=== PATIENT | female | born 1995 | race Hispanic/Latino ===

== ENCOUNTER 2024-05-13 13:30 | Emergency (ER) | payer SELFPAY ==
[2024-05-13] MEDS ORDERED: FAMOTIDINE 20 MG/2 ML VIAL IV ONE (14:34)
[2024-05-13] MEDS ORDERED: ONDANSETRON 4 MG/2 ML VIAL ONE (14:34)
[2024-05-13] MEDS ORDERED: NA CHLORIDE 0.9% 1,000 ML ONE (14:34)
[2024-05-13] MEDS ORDERED: KETOROLAC 30 MG/ML INJ ONE (14:34)
[2024-05-13 14:55] LABS: Specific Gravity 1.011 (1.005-1.030)
[2024-05-13 14:57] LABS: Specific Gravity 1.011 (1.005-1.030); Sqamous Epithelial None Seen /HPF (None Seen); Urine Bacteria None Seen /HPF (<20); Urine Bilirubin NEGATIVE (Negative); Urine Blood Trace (Negative); Urine Clarity Turbid (Clear); Urine Color Light-Yellow (Yellow); Urine Culture Reflex Order REFLEXED; Urine Glucose NEGATIVE (Negative); Urine Ketones TRACE (Negative); Urine Microscopic Reflex YN ORDER UMIC; Urine Mucus Slight /HPF (None Seen); Urine Nitrite NEGATIVE (Negative); Urine Protein NEGATIVE (Negative); Urine Urobilinogen Normal (Normal)
[2024-05-13 14:58] LABS: Absolute Eosinophils 0.1 K/uL (0-0.5); Absolute Lymphocytes (CBC) 1.9 K/uL (0.7-4.9); Absolute Monocytes 0.5 K/uL (0.1-1.3); Absolute Neutrophil 6.4 K/uL (1.8-8.0); Basophils % 0.3 % (0-1.3); Eosinophils % 0.7 % (0-4.4); Hematocrit 45.5 % (36.0-45.0); Hemoglobin 15.7 g/dL (12.0-15.0); Lymphocytes % 21.4 % (15.3-44.8); MCH 30.5 pg (27.0-35.0); MCHC 34.6 g/dL (32.0-36.0); MCV 88.1 fL (80-100); Monocytes % 5.5 % (3.3-12.3); Neutrophils % 72.1 % (41.7-73.7); Platelets 332 thou/uL (152-406); RBC Red Blood Cell Count 5.16 M/uL (3.86-4.86); Red Cell Distribution Width 13.5 % (12.1-15.2)
--- NOTE | 2024-05-13 14:59 | RAD REPORT ---
EXAMINATION: Abdomen Exam Limited CLINICAL HISTORY: [facility] MAIN N ABD PAIN Bed: COMPARISON: None. TECHNIQUE: Limited upper abdominal grayscale and color flow sonographic images. FINDINGS: Gallbladder: Normally distended. No gallstones. No wall thickening or pericholecystic fluid. Reported ly negative sonographic Goldman's sign. Bile ducts: No intrahepatic or extrahepatic biliary dilatation. Common bile duct measures 3 mm. Liver: Visualized portions of the liver demonstrate normal echogenicity with no suspicious findings. Fluid: No ascites. IMPRESSION: No abnormalities on right upper quadrant ultrasound.
[2024-05-13 15:09] LABS: Albumin/Globulin Ratio 0.9 (1.1-1.8); Anion Gap 6.6 mEq/L (5.0-15.0); Bilirubin Total 0.6 mg/dL (0.2-1.0); Globulin 4.4 g/dL (2.3-3.5); Potassium 3.6 mEq/L (3.5-5.1); Protein, Total 8.4 g/dL (6.4-8.2)
--- NOTE | 2024-05-13 17:45 | RAD REPORT ---
EXAMINATION: CT Abdomen Pelvis W Contrast CLINICAL INDICATION: Female, 28 years old. ABD PAIN TECHNIQUE: CT abdomen and pelvis was performed, after the administration of IV contrast, as per [facility] protocol. Axial, sagittal and coronal reconstructions were obtained. One or more of the following dose reduction techniques were used: Automated exposure control, adjustment of the mA and k V according to patient size, and iterative reconstruction. Unless otherwise specified, incidental findings do not require dedicated imaging follow-up. COMPARISON: No prior exam. FINDINGS: LOWER CHEST: The visualized lung bases are clear. LIVER: Normal in size and contour. No focal lesion. BILIARY SYSTEM: No suspicious abnormalities. SPLEEN: Normal size. No focal lesion. PANCREAS: No mass, ductal dilation, or cathryn-pancreatic fluid. ADRENALS: Normal; no mass. KIDNEYS: Normal size and contour. No hydronephrosis. URINARY BLADDER: Decompressed, limiting evaluation. GASTROINTESTINAL TRACT: No evidence of free air, significant intra-abdominal free fluid, bowel obstru ction or abscess. APPENDIX: Normal appendix. LYMPH NODES: No lymphadenopathy. MUSCULOSKELETAL: No acute or suspicious osseous abnormality. ADDITIONAL FINDINGS: Uterus is retroverted. IMPRESSION: No acute or concerning abnormalities seen in the abdomen or pelvis.
--- NOTE | 2024-05-13 17:56 | ER ---
Nurse's Notes [facility] Name: Luana Leach Age: 28 yrs Sex: Female : 1995 Arrival Date: 05/13/2024 Time: 13:30 Bed 5 Private MD: Diagnosis: Upper abdominal pain, unspecified Presentation: 05/13 14:01 Chief complaint: Patient states: right flank to abdominal pain since Monday. Nausea no tm6 vomiting. Coronavirus screen: Client denies travel out of the [place] in the last 14 days. Ebola Screen: Patient negative for fever greater than or equal to 101.5 degrees Fahrenheit, and additional compatible Ebola Virus Disease symptoms Patient denies exposure to infectious person. Patient denies travel to an Ebola-affected area in the 21 days before illness onset. No symptoms or risks identified at this time. Risk Assessment: Do you want to hurt yourself or someone else? Patient reports no desire to harm self or others. Onset of symptoms was May 10, 2024. 14:01 Method Of Arrival: Ambulatory tm6 14:01 Acuity: ELENA 3 tm6 14:05 Initial Sepsis Screen: Does the patient meet any 2 criteria? HR > 90 bpm. Does the tm6 patient have a suspected source of infection? No. Patient's initial sepsis screen is negative. Triage Assessment: 14:01 General: Appears in no apparent distress. Behavior is calm, cooperative. Pain: tm6 Complains of pain in back and abdomen. EENT: No signs and/or symptoms were reported regarding the EENT system. Neuro: Level of Consciousness is awake, alert, obeys commands, Oriented to person, place, time, situation. Cardiovascular: Patient's skin is warm and dry. Respiratory: Airway is patent Respiratory effort is even, unlabored, Respiratory pattern is regular, symmetrical. GI: Reports lower abdominal pain, upper abdominal pain. : Reports pain in right flank(s). Derm: No signs and/or symptoms reported regarding the dermatologic system. Musculoskeletal: Circulation, motion, and sensation intact. 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 - Infectious Disease History:: Denies. - Social history:: Smoking status: Patient denies any tobacco usage or history of. Patient/guardian denies using alcohol. Screenin:47 [facility] ED Fall Risk Assessment (Adult) History of falling in the last 3 months, bp including since admission No falls in past 3 months (0 pts) Confusion or Disorientation No (0 pts) Intoxicated or Sedated No (0 pts) Impaired Gait No (0 pts) Mobility Assist Device Used No (0 pt) Altered Elimination No (0 pt) Score/Fall Risk Level 0 - 2 = Low Risk Oriented to surroundings. Abuse screen: Denies threats or abuse. Denies injuries from another. Nutritional screening: No deficits noted. Tuberculosis screening: No symptoms or risk factors identified. Assessment: 14:10 Neuro: Level of Consciousness is awake, alert, obeys commands, Oriented to Appropriate bp for age. Vital Signs: 14:01 Pulse 103; Resp 18; Temp 98.2; Pulse Ox 99% on R/A; Weight 88.45 kg; Height 5 ft. 6 in. tm6 ; Pain 5/10; 14:04 BP 161 / 105; MAP 122 mmHg; tm6 14:05 Pain 5/10; tm6 16:00 BP 163 / 95; Pulse 89; Resp 16; Pulse Ox 100% ; bp 18:24 BP 151 / 89; Pulse 92; Resp 18; Pulse Ox 99% ; bp 14:01 Body Mass Index 31.47 (88.45 kg, 167.64 cm) tm6 14:01 Pain Scale: Adult tm6 14:05 Pain Scale: Adult tm6 ED Course: 13:33 Patient arrived in ED. mr 13:45 DominicMarlena, CELIO is PHCP. kb 13:45 Alex Oakley MD is Attending Physician. kb 14:02 Triage completed. tm6 14:05 Arm band placed on right wrist. tm6 14:08 Jose Elias Francis, SNOW is Primary Nurse. bp 14:22 Abdomen Limited US In Process Unspecified. EDMS 14:37 Initial lab(s) drawn, by ED staff, sent to lab. Inserted saline lock: 20 gauge in right bp antecubital area, using aseptic technique. Blood collected. Flushed with 10 mL NS. 14:47 Patient has correct armband on for positive identification. bp 16:00 CT Abd/Pelvis - IV Contrast Only In Process Unspecified. EDMS 18:25 No provider procedures requiring assistance completed. IV discontinued, intact, bp bleeding controlled, No redness/swelling at site. Pressure dressing applied. Administered Medications: 14:46 Drug: Famotidine IVP 20 mg IVP once; dilute with 10 mL 0.9% NaCl; give over 2 minutes bp Route: IVP; Site: right antecubital; 18:24 Follow up: Response: No adverse reaction bp 14:46 Drug: TORadol - Ketorolac IVP 15 mg IVP once Route: IVP; Site: right antecubital; bp 18:26 Follow up: Response: No adverse reaction bp 14:46 Drug: Ondansetron IVP 4 mg IVP once; over 2 minutes Route: IVP; Site: right antecubital;bp 18:24 Follow up: Response: No adverse reaction bp 14:46 Drug: NS 0.9% IV 1000 ml IV at 1 bolus Per protocol; to be given as a bolus over 60 bp minutes Route: IV; Rate: 1 bolus; Site: right antecubital; 18:24 Follow up: IV Status: Completed infusion; IV Intake: 1000ml bp Intake: 18:24 IV: 1000ml; Total: 1000ml. bp Outcome: 17:56 Discharge ordered by . kb 18:25 Discharged to home ambulatory, with family, bp 18:25 Condition: stable 18:25 Discharge instructions given to patient, Instructed on discharge instructions, follow up and referral plans. medication usage, Demonstrated understanding of instructions, follow-up care, medications, Prescriptions given X 2, 18:26 Patient left the ED. bp Signatures: Dispatcher [employer] EDMS Marlena Alfaro, ACUTE CARE OCCUPATIONAL THERAPIST-C ACUTE CARE OCCUPATIONAL THERAPIST-Ckb Liz Manning, Reg Reg Jose Elias Pop, RN RN bp Yash Pack RN RN tm6
--- NOTE | 2024-05-13 17:56 | EDPHYS ---
Physician Documentation [facility] Name: Luana Leach Age: 28 yrs Sex: Female : 1995 Arrival Date: 05/13/2024 Time: 13:30 Bed 5 Private MD: ED Physician Alex Oakley HPI: 05/13 17:14 This 28 yrs old Female presents to ER via Ambulatory with complaints of Back kb Pain, Abdominal Pain. 17:14 Pt is a 28 year old female who presents with RUQ pain that wraps to right back that kb began 4 days ago. Reports nausea. Denies vomiting, diarrhea, fever. . 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 - Infectious Disease History:: Denies. - Social history:: Smoking status: Patient denies any tobacco usage or history of. Patient/guardian denies using alcohol. ROS: 17:13 Constitutional: As per HPI kb Exam: 17:13 Constitutional: This is a well developed, well nourished patient who is awake, alert, kb and in no acute distress. Head/Face: Normocephalic, atraumatic. ENT: Moist Mucous membranes Cardiovascular: Regular rate Respiratory: Respirations even and unlabored. No increased work of breathing. Talking in full sentences Skin: Warm, dry with normal turgor. Normal color. MS/ Extremity: Pulses equal, no cyanosis. Neurovascular intact. Full, normal range of motion. Neuro: Awake and alert, GCS 15, oriented to person, place, time, and situation. Moves all extremities. Normal gait. 17:13 Abdomen/GI: Inspection: abdomen appears normal, Bowel sounds: normal, Palpation: soft, in all quadrants, mild abdominal tenderness, in the right upper quadrant, 17:13 Back: pain, that is mild, of the right mid back, ROM is normal, Vital Signs: 14:01 Pulse 103; Resp 18; Temp 98.2; Pulse Ox 99% on R/A; Weight 88.45 kg; Height 5 ft. 6 in. tm6 ; Pain 5/10; 14:04 BP 161 / 105; MAP 122 mmHg; tm6 14:05 Pain 5/10; tm6 16:00 BP 163 / 95; Pulse 89; Resp 16; Pulse Ox 100% ; bp 18:24 BP 151 / 89; Pulse 92; Resp 18; Pulse Ox 99% ; bp 14:01 Body Mass Index 31.47 (88.45 kg, 167.64 cm) tm6 14:01 Pain Scale: Adult tm6 14:05 Pain Scale: Adult tm6 MDM: 13:46 Medical Screening Exam initiated kb 17:14 Differential diagnosis: Cholelithiasis kidney stone, cholecystitis, nonspecific abd kb pain. Data reviewed: vital signs, nurses notes. 17:55 Counseling: I had a detailed discussion with the patient and/or guardian regarding the kb historical points, exam findings, and any diagnostic results supporting the discharge/admit diagnosis, lab results, radiology results, the need for outpatient follow up, a family practitioner, to return to the emergency department if symptoms worsen or persist or if there are any questions or concerns that arise at home. 05/13 14:03 Order name: CBC with Diff; Complete Time: 15:02 kb 05/13 14:03 Order name: CMP; Complete Time: 15:10 kb 05/13 14:03 Order name: Lipase; Complete Time: 15:10 kb 05/13 14:03 Order name: Test, Urine; Complete Time: 15:02 kb 05/13 14:03 Order name: Urinalysis w/ reflexes; Complete Time: 15:02 kb 05/13 15:01 Order name: Urine Culture EDMS 05/13 14:03 Order name: Abdomen Limited US; Complete Time: 15:02 kb 05/13 15:11 Order name: CT Abd/Pelvis - IV Contrast Only; Complete Time: 17:51 kb 05/13 14:03 Order name: IV Saline Lock; Complete Time: 14:37 kb 05/13 14:03 Order name: Labs collected and sent; Complete Time: 14:37 kb Administered Medications: 14:46 Drug: Famotidine IVP 20 mg IVP once; dilute with 10 mL 0.9% NaCl; give over 2 minutes bp Route: IVP; Site: right antecubital; 18:24 Follow up: Response: No adverse reaction bp 14:46 Drug: TORadol - Ketorolac IVP 15 mg IVP once Route: IVP; Site: right antecubital; bp 18:26 Follow up: Response: No adverse reaction bp 14:46 Drug: Ondansetron IVP 4 mg IVP once; over 2 minutes Route: IVP; Site: right antecubital;bp 18:24 Follow up: Response: No adverse reaction bp 14:46 Drug: NS 0.9% IV 1000 ml IV at 1 bolus Per protocol; to be given as a bolus over 60 bp minutes Route: IV; Rate: 1 bolus; Site: right antecubital; 18:24 Follow up: IV Status: Completed infusion; IV Intake: 1000ml bp Disposition Summary: 05/13/24 17:56 Discharge Ordered Notes: Location: Home kb Condition: Stable kb Diagnosis - Upper abdominal pain, unspecified kb Followup: kb - With: Emergency Department - When: As needed - Reason: Worsening of condition Followup: kb - With: Private Physician - When: 2 - 3 days - Reason: Recheck today's complaints, Continuance of care, Re-evaluation by your physician Discharge Instructions: - Discharge Summary Sheet kb - Abdominal Pain, Adult, [id number] kb Forms: - Medication Reconciliation Form kb - Antibiotic Education kb - Prescription Opioid Use kb - Patient Portal Instructions kb - Leadership Thank You Letter kb Prescriptions: - Zofran 4 mg Oral tablet - take 1 tablet ORAL route every 6 hours As needed; 12 tablet; Refills: 0, kb Product Selection Permitted - dicyclomine 20 mg Oral tablet - take 1 tablet ORAL route 4 times per day As needed; 20 tablet; Refills: 0, kb Product Selection Permitted Signatures: Dispatcher [employer] EDWY Marlena Alfaro, RETENTION MANAGER-C RETENTION MANAGER-Jose Elias Paige, RN RN bp Yash Pack, RN RN tm6 Corrections: (The following items were deleted from the chart) 14:04 14:04 CBC+H.LAB.BRZ ordered. EDMS EDMS 14:04 14:04 COMPREHENSIVE METABOLIC PANEL+C.LAB.BRZ ordered. EDMS EDMS 14:04 14:04 LIPASE+C.LAB.BRZ ordered. EDMS EDMS 14:04 14:04 Test, Urine+UC.LAB.BRZ ordered. EDMS EDMS 14:04 14:04 Urinalysis+U.LAB.BRZ ordered. EDMS EDMS 15:11 15:11 Abdomen Pelvis W Con+CT.RAD.BRZ ordered. EDMS EDMS
[2024-05-13 21:58] VITALS: TEMP 98.2
[2024-05-13 22:02] VITALS: BP 151/89; O2SAT 99
== END 2024-05-13 18:26 | disposition home or self-care (01) ==
LOC: ER 13:30
DX: R10.11 Right upper quadrant pain (principal); R11.0 Nausea
CPT/HCPCS: 36415; 74177; 76705; 80053; 81001; 81025; 83690; 85025; 87086; 87088; 96361; 96374; 96375; 99284; J2405; J7030; Q9967